=== PATIENT | male | born 1960 | race Caucasian/White ===

== ENCOUNTER → 2017-12-24 | Outpatient (CLI) | payer OTHER ==
--- NOTE | 2017-12-24 11:39 | Diagnostic Imaging Report ---
EXAMINATION: Lumbar spine. INDICATION: Back pain. TECHNIQUE: AP, lateral, and spot lateral views were obtained. COMPARISON: There are no prior studies available for comparison. FINDINGS: There has been a broad laminectomy and fusion involving L4, L5, and S1. There is also fairly severe degenerative disc and bony disease at the L3-4 level. Specifically, the disc space is narrowed and there is sclerosis of the opposing endplates of L3 and L4. The other intervertebral spaces are well-maintained. There is no fracture or acute bony abnormality identified. There is no sign of a paraspinal mass. There is moderate symmetrical sclerosis of the sacroiliac joints. IMPRESSION: 1. There are postoperative changes, consistent with laminectomy and fusion, of L4, L5, and S1. There is no acute bony abnormality identified. 2. There is severe degenerative disc and bony disease at the L3-4 level. 3. If there is clinical concern regarding spinal stenosis or nerve root encroachment, then MRI would be recommended for additional study. Dictated by: Dictated on workstation # [id number]
--- NOTE | 2017-12-24 11:54 | Diagnostic Imaging Report ---
EXAMINATION: Cervical spine at 10:40 AM. INDICATION: Neck pain. TECHNIQUE: AP, lateral, and odontoid views were obtained. COMPARISON: There are no prior studies available for comparison. FINDINGS: The lateral view shows that there has been prior anterior fusion of C5 and C6. The orthopedic hardware seems to be in good position. There is also fairly severe degenerative disc and bony disease at the C3-4 and C6-7 and to a lesser degree the C7-T1 levels. There is no fracture or other acute bony abnormality identified. There is no sign of retropharyngeal edema. The lung apices are clear. IMPRESSION: 1. There is no evidence for an acute bony abnormality. 2. There are post surgical changes, consistent with prior fusion of C5 and C6. 3. There is degenerative disc and bony disease as described above. If there is clinical concern regarding spinal stenosis or nerve root encroachment, then MRI would be recommended for further study. Dictated by: Dictated on workstation # [id number]
== END ==
LOC: RAD 09:54
PROVIDERS: ATTEND Neuromusculoskeletal Medicine, Sports Medicine
DX: Z02.71 Encounter for disability determination (principal); M50.33 Other cervical disc degeneration, cervicothoracic region; M51.36 Other intervertebral disc degeneration, lumbar region; Z98.1 Arthrodesis status
CPT/HCPCS: 72040; 72100